=== PATIENT | male | born 1960 | race Caucasian/White ===

== ENCOUNTER 2017-07-29 11:19 | Emergency (ER) | payer OTHER ==
[2017-07-29] MEDS: IBUPROFEN 600 MG TAB PO (12:08)
[2017-07-29] MEDS: ALBUTEROL 0.083% (NEB) 2.5 MG/3 ML AMP HHN (12:27)
[2017-07-29] MEDS: IPRATROPIUM (NEB) 0.5 MG/2.5 ML AMP NEB (14:20)
[2017-07-29] MEDS: ALBUTEROL 0.083% (NEB) 2.5 MG/3 ML AMP NEB (14:20)
[2017-07-29 14:24] LABS: ADD MAN DIFF? NO
[2017-07-29 14:27] LABS: WHITE BLOOD COUNT 7.3 10^3/ul (4.8-10.8)
[2017-07-29 14:27] LABS: BASOPHIL # 0.1 10^3/ul (0.0-0.1); BASOPHILS % 0.8 % (0.0-2.0); EOSINOPHILS # 0.3 10^3/ul (0.0-0.5); EOSINOPHILS % 4.1 % (0.0-7.0); HEMATOCRIT 43.7 % (42.0-52.0); HEMOGLOBIN 15.2 g/dl (14.0-18.0); LYMPHOCYTES # 2.9 10^3/ul (0.8-2.9); LYMPHOCYTES % 40.1 % (15.0-51.0); MEAN CORPUSCULAR HEMOGLOBIN 31.1 pg (29.0-33.0); MEAN CORPUSCULAR HGB CONC 34.8 g/dl (32.0-37.0); MEAN CORPUSCULAR VOLUME 89.5 fl (82.0-101.0); MEAN PLATELET VOLUME 11.1 fl (7.4-10.4); MONOCYTE # 0.8 10^3/ul (0.3-0.9); MONOCYTES % 11.6 % (0.0-11.0); NEUTROPHIL # 3.1 10^3/ul (1.6-7.5); PLATELET COUNT 274 10^3/UL (140-415); RED BLOOD COUNT 4.88 10^6/ul (4.70-6.10); RED CELL DISTRIBUTION WIDTH 12.4 % (11.5-14.5)
[2017-07-29 14:50] LABS: ANION GAP 16 (8-16); BLOOD UREA NITROGEN 14 mg/dl (7-20); CALCIUM 8.9 mg/dl (8.4-10.2); CARBON DIOXIDE 24 mmol/L (21-31); CHLORIDE 104 mmol/L (97-110); CREATININE 0.76 mg/dl (0.61-1.24); GLUCOSE 83 mg/dl (70-220); POTASSIUM 4.3 mmol/L (3.5-5.1); SODIUM 140 mmol/L (135-144)
[2017-07-29 14:59] LABS: TROPONIN-I < 0.012 ng/ml (0.00-0.12)
== END 2017-07-29 15:13 | disposition home or self-care (01) ==
LOC: FTE 11:19
DX: R05 Cough (principal); R07.89 Other chest pain
CPT/HCPCS: 36415; 71045; 80048; 84484; 85025; 93005; 94640; 94664; 99285-25

== ENCOUNTER 2018-09-24 08:48 | Inpatient (IN) | payer OTHER ==
[2018-09-24 09:41] LABS: ADD MAN DIFF? NO
[2018-09-24 09:44] LABS: WHITE BLOOD COUNT 6.3 10^3/ul (4.8-10.8)
[2018-09-24 09:44] LABS: BASOPHIL # 0.1 10^3/ul (0.0-0.1); BASOPHILS % 0.8 % (0.0-2.0); EOSINOPHILS # 0.4 10^3/ul (0.0-0.5); EOSINOPHILS % 6.3 % (0.0-7.0); HEMATOCRIT 44.8 % (42.0-52.0); HEMOGLOBIN 15.1 g/dl (14.0-18.0); LYMPHOCYTES # 2.5 10^3/ul (0.8-2.9); LYMPHOCYTES % 39.8 % (15.0-51.0); MEAN CORPUSCULAR HGB CONC 33.7 g/dl (32.0-37.0); MONOCYTE # 0.7 10^3/ul (0.3-0.9); MONOCYTES % 10.3 % (0.0-11.0); NEUTROPHIL # 2.7 10^3/ul (1.6-7.5); NEUTROPHILS % 42.5 % (39.0-77.0); PLATELET COUNT 249 10^3/UL (140-415); RED BLOOD COUNT 4.87 10^6/ul (4.70-6.10); RED CELL DISTRIBUTION WIDTH 12.4 % (11.5-14.5)
[2018-09-24] MEDS: ASPIRIN 325 MG TAB PO (09:54)
[2018-09-24 10:05] LABS: ANION GAP 11 (5-13); BLOOD UREA NITROGEN 16 mg/dl (7-20); CALCIUM 8.9 mg/dl (8.4-10.2); CARBON DIOXIDE 28 mmol/L (21-31); CHLORIDE 104 mmol/L (97-110); CREATININE 0.67 mg/dl (0.61-1.24); Estimated GFR > 60 mL/min (>60); GLUCOSE 94 mg/dl (70-220); SODIUM 143 mmol/L (135-144)
[2018-09-24 10:17] LABS: TROPONIN-I < 0.012 ng/ml (0.000-0.120)
[2018-09-24] MEDS ORDERED: morphine 2 MG INJ IV (13:00)
[2018-09-24] MEDS ORDERED: ONDANSETRON 4 MG INJ IV (13:00)
[2018-09-24] MEDS ORDERED: ACETAMINOPHEN 325 MG TAB PO (13:00)
[2018-09-24] MEDS ORDERED: NACL 0.9% 3 ML SYG IV (13:00)
[2018-09-24] MEDS: PANTOPRAZOLE 40 MG INJ IV (15:55)
[2018-09-24 16:07] LABS: CREATINE KINASE 75 IU/L (23-200)
[2018-09-24 16:19] LABS: CK INDEX 0.4; CK-MB 0.32 ng/ml (0.0-2.4); TROPONIN-I < 0.012 ng/ml (0.000-0.120)
[2018-09-24] MEDS: HEPARIN 5,000 UNIT/1 ML VIAL SC ×2 (18:10→21:24)
[2018-09-24] MEDS: LIDOCAINE/MYLANTA 40 ML BTL PO (18:10)
[2018-09-24] MEDS: LATANOPROST 0.005% 2.5 ML OPH BOTH EYES (21:00)
[2018-09-24] MEDS: ATORVASTATIN 80 MG TAB PO (21:41)
[2018-09-24 23:45] LABS: CREATINE KINASE 73 IU/L (23-200)
[2018-09-24 23:58] LABS: CK INDEX 0.3; CK-MB 0.23 ng/ml (0.0-2.4); TROPONIN-I < 0.012 ng/ml (0.000-0.120)
[2018-09-25] MEDS: PANTOPRAZOLE (EC) 40 MG TAB PO (05:16)
[2018-09-25] MEDS: HEPARIN 5,000 UNIT/1 ML VIAL SC ×3 (05:43→21:29)
[2018-09-25 06:58] LABS: ADD MAN DIFF? NO
[2018-09-25 07:01] LABS: WHITE BLOOD COUNT 7.2 10^3/ul (4.8-10.8)
[2018-09-25 07:01] LABS: BASOPHILS % 0.6 % (0.0-2.0); EOSINOPHILS # 0.4 10^3/ul (0.0-0.5); EOSINOPHILS % 5.1 % (0.0-7.0); HEMATOCRIT 45.3 % (42.0-52.0); HEMOGLOBIN 15.1 g/dl (14.0-18.0); LYMPHOCYTES # 3.1 10^3/ul (0.8-2.9); LYMPHOCYTES % 43.5 % (15.0-51.0); MEAN CORPUSCULAR HEMOGLOBIN 30.8 pg (29.0-33.0); MEAN CORPUSCULAR HGB CONC 33.3 g/dl (32.0-37.0); MEAN CORPUSCULAR VOLUME 92.4 fl (82.0-101.0); MEAN PLATELET VOLUME 11.3 fl (7.4-10.4); MONOCYTE # 0.7 10^3/ul (0.3-0.9); MONOCYTES % 9.3 % (0.0-11.0); NEUTROPHILS % 41.1 % (39.0-77.0); PLATELET COUNT 258 10^3/UL (140-415); RED CELL DISTRIBUTION WIDTH 12.4 % (11.5-14.5)
[2018-09-25 07:27] LABS: ALANINE AMINOTRANSFERASE 21 IU/L (13-69); ALBUMIN/GLOBULIN RATIO 1.33; ALKALINE PHOSPHATASE 64 IU/L (42-121); ANION GAP 12 (5-13); ASPARTATE AMINO TRANSFERASE 25 IU/L (15-46); BILIRUBIN,INDIRECT 0.6 mg/dl (0-1.1); BILIRUBIN,TOTAL 0.6 mg/dl (0.2-1.3); BLOOD UREA NITROGEN 16 mg/dl (7-20); CALCIUM 8.9 mg/dl (8.4-10.2); CARBON DIOXIDE 30 mmol/L (21-31); CHLORIDE 101 mmol/L (97-110); CHOL/HDL RATIO 4.1 RATIO; CHOLESTEROL 149 mg/dl (100-200); CREATININE 0.86 mg/dl (0.61-1.24); Estimated GFR > 60 mL/min (>60); GLUCOSE 90 mg/dl (70-220); HDL CHOLESTEROL 36 mg/dl (28-71); MAGNESIUM 2.2 mg/dl (1.7-2.5); POTASSIUM 4.2 mmol/L (3.5-5.1); SODIUM 143 mmol/L (135-144)
[2018-09-25 07:28] LABS: LDL CHOLESTEROL,CALCULATED 78 mg/dl; TRIGLYCERIDES 174 mg/dl (0-149)
[2018-09-25 07:32] LABS: HEMOGLOBIN A1C 5.2 % (0-5.9)
[2018-09-25] MEDS: ASPIRIN 81 MG TAB PO (08:46)
[2018-09-25] MEDS: TIMOLOL 0.5% 5 ML OPH BOTH EYES (10:01)
[2018-09-25] MEDS ORDERED: ALBUTEROL/IPRATROPIUM (NEB) 3 ML AMP HHN (13:00)
[2018-09-25] MEDS: BACLOFEN 10 MG TAB PO ×2 (13:49→21:23)
[2018-09-25] MEDS: HYDROCODONE/APAP (5/325) TAB PO (19:13)
[2018-09-25] MEDS: ALBUTEROL/IPRATROPIUM (NEB) 3 ML AMP HHN (20:07)
[2018-09-25] MEDS: LATANOPROST 0.005% 2.5 ML OPH BOTH EYES (21:00)
[2018-09-25] MEDS: ATORVASTATIN 80 MG TAB PO (21:23)
[2018-09-26] MEDS: LATANOPROST 0.005% 2.5 ML OPH BOTH EYES (00:56)
[2018-09-26] MEDS: PANTOPRAZOLE (EC) 40 MG TAB PO (06:23)
[2018-09-26] MEDS: HEPARIN 5,000 UNIT/1 ML VIAL SC ×2 (06:27→13:21)
[2018-09-26] MEDS: BACLOFEN 10 MG TAB PO ×2 (08:17→13:07)
[2018-09-26] MEDS: TIMOLOL 0.5% 5 ML OPH BOTH EYES (08:17)
[2018-09-26] MEDS: ASPIRIN 81 MG TAB PO (08:17)
[2018-09-26] MEDS: ALBUTEROL/IPRATROPIUM (NEB) 3 ML AMP HHN ×2 (08:23→13:11)
[2018-09-26 08:59] LABS: ADD MAN DIFF? NO
[2018-09-26 09:05] LABS: BASOPHILS % 0.4 % (0.0-2.0); EOSINOPHILS # 0.4 10^3/ul (0.0-0.5); HEMATOCRIT 43.8 % (42.0-52.0); HEMOGLOBIN 14.8 g/dl (14.0-18.0); LYMPHOCYTES # 3.7 10^3/ul (0.8-2.9); LYMPHOCYTES % 48.6 % (15.0-51.0); MEAN CORPUSCULAR HGB CONC 33.8 g/dl (32.0-37.0); MEAN CORPUSCULAR VOLUME 91.8 fl (82.0-101.0); MEAN PLATELET VOLUME 11.7 fl (7.4-10.4); MONOCYTE # 0.7 10^3/ul (0.3-0.9); MONOCYTES % 9.4 % (0.0-11.0); NEUTROPHIL # 2.8 10^3/ul (1.6-7.5); NEUTROPHILS % 36.1 % (39.0-77.0); PLATELET COUNT 245 10^3/UL (140-415); RED BLOOD COUNT 4.77 10^6/ul (4.70-6.10); RED CELL DISTRIBUTION WIDTH 12.2 % (11.5-14.5)
[2018-09-26 09:05] LABS: WHITE BLOOD COUNT 7.7 10^3/ul (4.8-10.8)
[2018-09-26 09:26] LABS: ANION GAP 11 (5-13); BLOOD UREA NITROGEN 16 mg/dl (7-20); CALCIUM 8.7 mg/dl (8.4-10.2); CARBON DIOXIDE 29 mmol/L (21-31); CHLORIDE 101 mmol/L (97-110); CREATININE 0.79 mg/dl (0.61-1.24); Estimated GFR > 60 mL/min (>60); GLUCOSE 77 mg/dl (70-220); MAGNESIUM 2.1 mg/dl (1.7-2.5); PHOSPHORUS 3.7 mg/dl (2.5-4.9); POTASSIUM 3.6 mmol/L (3.5-5.1); SODIUM 141 mmol/L (135-144)
[2018-09-26] MEDS: HYDROCODONE/APAP (5/325) TAB PO (09:26)
[2018-09-26 09:53] LABS: FREE T4 (FREE THYROXINE) 1.18 ng/dl (0.64-1.79)
== END 2018-09-26 14:13 | disposition home or self-care (01) | DRG 313 ==
LOC: E/R 08:48 → TEL 11:16
DX: R07.89 Other chest pain (principal); R00.1 Bradycardia, unspecified; R55 Syncope and collapse; M79.605 Pain in left leg; H40.9 Unspecified glaucoma; M79.602 Pain in left arm; J45.909 Unspecified asthma, uncomplicated; R05 Cough; Z79.82 Long term (current) use of aspirin
CPT/HCPCS: 36415; 70551; 71045; 71250; 80048; 80053; 80061; 82550; 82553; 83036; 83735; 84100; 84439; 84443; 84484; 85025; 93005; 93306; 93880; 94640; 94664; 97161; 99285-25; G0378